=== PATIENT | male | born 1995 | race Two or more races ===

== ENCOUNTER 2023-04-01 21:34 | Emergency (ER) | payer OTHER ==
[~2023-04-01] VITALS: Ht 175.3 cm; Wt 86.2 kg
[2023-04-01] MEDS: LORAZEPAM 1 MG TABLET PO ONE (22:19)
[2023-04-01] MEDS ORDERED: LORAZEPAM 1 MG TABLET ONE (22:19)
[2023-04-01 22:49] VITALS: BP 112/62; TEMP 97.1; O2SAT 99
== END 2023-04-01 22:44 | disposition home or self-care (01) ==
LOC: ER 21:50
DX: F41.0 Panic disorder [episodic paroxysmal anxiety] (principal); F12.980 Cannabis use, unspecified with anxiety disorder